=== PATIENT | female | born 1965 | race Caucasian/White ===

== ENCOUNTER 2017-08-11 12:00 | Day surgery (SDC) | payer OTHER ==
[~2017-08-11] VITALS: Ht 152.4 cm; Wt 61.2 kg
[2017-08-11] MEDS ORDERED: CALCIUM500 MG PO (12:25)
[2017-08-11] MEDS ORDERED: DULOXETINE HCL30 MG PO (12:26)
[2017-08-11] MEDS ORDERED: CLOBETASOL EMOL15 GM TOP (12:26)
[2017-08-11] MEDS ORDERED: FISH OIL 1,2001 EACH PO (12:27)
[2017-08-11] MEDS ORDERED: FLONASE ALLERG9.9 ML NAS ×2 (12:30)
[2017-08-11] MEDS ORDERED: THERAPEUTIC-M1 EAC1 PO (12:32)
[2017-08-11] MEDS ORDERED: LEFLUNOMIDE10 MG PO (12:33)
[2017-08-11] MEDS ORDERED: LORATADINE10 M2 PO (12:34)
[2017-08-11] MEDS ORDERED: L-LYSINE600 MG PO (12:34)
[2017-08-11] MEDS ORDERED: METHOTREXATE2.5 MG PO (12:35)
[2017-08-11] MEDS ORDERED: PANTOPRAZOLE SO40 MG PO (12:36)
[2017-08-11] MEDS ORDERED: MULTIVITAMINS1 EAC7 PO (12:36)
[2017-08-11] MEDS ORDERED: SULFASALAZINE500 M1 PO (12:37)
[2017-08-11] MEDS ORDERED: PROBIOTIC1 EAC1 PO (12:37)
--- NOTE | 2017-08-11 14:06 | NUR ---
08/11/17 1406 Ousmane Swann REPOSITIONED IN BED AND GAVE SIPS OF WATER AT 1400. CONTINUES TO DENY NAUSEA OR PAIN. STEADY ON FEET WITH ONE PERSON STAND BY ASSIST FOR TRANSFER TO CHAIR AT BEDSIDE.
--- NOTE | 2017-08-21 14:11 | OR ---
[facility] [address], [place] [address] Signed DATE OF OPERATION: 08/11/2017 SURGEON: Kimberlee Souza MD PREOPERATIVE DIAGNOSIS: Colon screening. POSTOPERATIVE DIAGNOSIS: Normal colon to cecum. PROCEDURE: Total colonoscopy to cecum. ANESTHESIA: Intravenous sedation; fentanyl 100 mcg, Versed 6 mg. INDICATION: This 52-year-old white woman who is referred by Dr. Camacho for consideration of colon screening. She had anticipated colonoscopy 2 years ago, but was denied by her Insurance Company for this procedure. She had no particular symptoms at that time. She has no family history of colon cancer. She remains reasonably healthy, though she has been diagnosed with Sjogren syndrome and typical symptoms of a dry mouth and so on. She also has rheumatoid arthritis, fibromyalgia, and considered to have reflux. She has no associated dysphagia. She has some gluten enteropathy symptoms including diarrhea and avoids dairy products and wheat products currently. She has never been formally diagnosed with gluten enteropathy, however. She was admitted at this time to undergo screening colonoscopy, understood the risks of bleeding, infection, and perforation. Understood and then she wished to proceed. FINDINGS: The prep was excellent. Complete colonoscopy was undertaken to the cecum without question. The ileocecal valve and appendiceal orifice were normal. The remaining colon was entirely normal. She did have a few hypertrophic anal papilla, but no sign of polyps. There were no diverticula. DESCRIPTION OF PROCEDURE: The patient was brought to the endoscopy suite and placed in lateral decubitus position. She was given intravenous sedation to the point of slurred speech and nystagmus with full cardiopulmonary monitoring. Digital rectal examination was normal. Electronically Signed By: KIMBERLEE SOUZA MD 08/21/17 1411 PATIENT NAME: LUCIUS OBRIEN OPERATIVE REPORT DATE OF : 67 REPORT #: [id number] PHYSICIAN: KIMBERLEE SOUZA MD PCP: ROLANDO CAMACHO DO REPORT IS CONFIDENTIAL AND NOT TO BE RELEASED WITHOUT AUTHORIZATION [facility] [address], [place] [address] Signed An Olympus video colonoscope was passed in the rectum and manipulated throughout the colon. Abdominal wall stabilization was needed to pass the hepatic flexure safely. Ultimately, the cecum was intubated. The ileocecal valve and appendiceal orifice were normal. Irrigation was undertaken as needed and the scope was carefully withdrawn from that point. Examination throughout behind each and every fold showed no sign of polyps, diverticular formation, colitis, or cancer. Retroflex view in the rectum showed some hypertrophied anal papilla, but no other abnormalities of concern. Scope was straightened, withdrawn, and removed. The patient was taken to recovery room in good condition. CONCLUDING DIAGNOSIS: Normal colon to cecum. PLAN: Recommend repeat colonoscopy in 10 years sooner if clinically indicated. She will return to the ongoing care of Dr. Camacho. MD LESLIE Wylie/ANAT /[id number] cc: Dr. Camacho Copies: ~ Electronically Signed By: KIMBERLEE SOUZA MD 08/21/17 1411 PATIENT NAME: LUCIUS OBRIEN OPERATIVE REPORT DATE OF : 67 REPORT #: [id number] PHYSICIAN: KIMBERLEE SOUZA MD PCP: ROLANDO CAMACHO DO REPORT IS CONFIDENTIAL AND NOT TO BE RELEASED WITHOUT AUTHORIZATION
== END 2017-08-11 14:17 | disposition home or self-care (01) ==
LOC: DS 12:00 → OPS 12:00 → DS 13:00 → OPS 13:00
PROVIDERS: Surgery
PROC: 0DJD8ZZ Inspection of Lower Intestinal Tract, Via Natural or Artificial Opening Endoscopic (ICD-10-PCS; principal; 2017-08-11 13:00)
DX: Z12.11 Encounter for screening for malignant neoplasm of colon (principal); K62.89 Other specified diseases of anus and rectum; K21.0 Gastro-esophageal reflux disease with esophagitis; M35.00 Sjogren syndrome, unspecified; F32.9 Major depressive disorder, single episode, unspecified; Z88.1 Allergy status to other antibiotic agents; Z88.4 Allergy status to anesthetic agent; Z88.2 Allergy status to sulfonamides; Z88.8 Allergy status to other drugs, medicaments and biological substances; Z90.710 Acquired absence of both cervix and uterus; Z98.890 Other specified postprocedural states; Z80.0 Family history of malignant neoplasm of digestive organs
CPT/HCPCS: 99153; G0500; J2250; J3010